=== PATIENT | male | born 1940 | race Caucasian/White ===

== ENCOUNTER → 2024-05-09 14:38 | Outpatient (REF) | payer MEDICARE, OTHER, SELFPAY ==
[2024-05-09 17:14] LABS: PSA, Total - Screen < 0.06 ng/ml (0.0-4.0)
== END ==
LOC: REG 14:38
PROVIDERS: ATTENDING PHYSICIAN Family Medicine Geriatric Medicine; FAMILY PHYSICIAN Family Medicine
DX: Z12.5 Encounter for screening for malignant neoplasm of prostate (principal)
CPT/HCPCS: 36415; G0103

== ENCOUNTER → 2024-09-25 08:27 | Outpatient (REF) | payer MEDICARE, OTHER, SELFPAY ==
[2024-09-25 11:57] LABS: PSA, Total - Diagnostic < 0.06 ng/ml (0.0-4.0)
== END ==
LOC: REG 08:27
PROVIDERS: ATTENDING PHYSICIAN Family Medicine
DX: Z85.46 Personal history of malignant neoplasm of prostate (principal)
CPT/HCPCS: 36415; 84153

== ENCOUNTER → 2025-06-16 08:03 | Outpatient (REF) | payer MEDICARE, OTHER, SELFPAY ==
[2025-06-16 10:20] LABS: PSA, Total - Screen 0.08 ng/ml (0.0-4.0)
== END ==
LOC: REG 08:03
PROVIDERS: ATTENDING PHYSICIAN Family Medicine
DX: Z85.46 Personal history of malignant neoplasm of prostate (principal); Z12.5 Encounter for screening for malignant neoplasm of prostate
CPT/HCPCS: 36415; G0103

== ENCOUNTER → 2025-08-18 15:28 | Outpatient (REF) | payer MEDICARE, OTHER, SELFPAY ==
[2025-08-18 17:58] LABS: PSA, Total - Screen 0.09 ng/ml (0.0-4.0)
== END ==
LOC: REG 15:28
PROVIDERS: ATTENDING PHYSICIAN Family Medicine
DX: Z85.46 Personal history of malignant neoplasm of prostate (principal); Z12.5 Encounter for screening for malignant neoplasm of prostate
CPT/HCPCS: 36415; G0103

== ENCOUNTER → 2025-08-31 09:58 | Outpatient (REF) | payer MEDICARE, OTHER, SELFPAY ==
[2025-08-31 11:28] LABS: PSA, Total - Diagnostic 0.09 ng/ml (0.0-4.0)
== END ==
LOC: REG 09:58
PROVIDERS: ATTENDING PHYSICIAN Family Medicine
DX: R97.20 Elevated prostate specific antigen [PSA] (principal); Z85.46 Personal history of malignant neoplasm of prostate
CPT/HCPCS: 36415; 84153